=== PATIENT | male | born 1965 | race Caucasian/White ===

== ENCOUNTER 2025-09-10 19:12 | Emergency (ER) | payer OTHER ==
[~2025-09-10] VITALS: Ht 170.2 cm; Wt 74.0 kg
[2025-09-10] MEDS ORDERED: HYDR-3490 PO (19:24)
[2025-09-10] MEDS ORDERED: METO1TAB33 PO (19:24)
[2025-09-10] MEDS ORDERED: DULO1CAP6 PO (19:24)
[2025-09-10] MEDS ORDERED: SIMV40TA20 PO (19:24)
[2025-09-10] MEDS ORDERED: OLME40TA PO (19:24)
[2025-09-10 19:50] LABS: VENOUS BASE EXCESS 1.5 (-2.0-2.0); VENOUS HCO3 28.1 MMOL/L (23.0-27.0); VENOUS O2 SATURATION 64.6 % (60.0-80.0); VENOUS PARTIAL PRESSURE CO2 51.2 mmHg (38.0-50.0); VENOUS PARTIAL PRESSURE O2 34.6 mmHg (30.0-50.0); VENOUS PH 7.357 UNITS (7.330-7.430); VENOUS STANDARD HCO3 24.9 MMOL/L; VENOUS TOTAL CO2 29.7 MMOL/L (24.0-28.0)
[2025-09-10 19:56] LABS: BASO # 0.1 10^3/uL (0.0-0.2); BASO % 0.5 % (0.0-1.0); EOS # 1.0 10^3/uL (0.0-0.5); EOS % 5.0 % (0.0-3.0); LYMPH # 3.9 10^3/uL (1.5-5.0); LYMPH % 18.9 % (24.0-44.0); MONO # 1.7 10^3/uL (0.0-0.8); MONO % 8.1 % (2.0-8.0); NEUTROPHILS # 13.9 10^3/uL (1.5-8.5); NEUTROPHILS % 67.1 % (36.0-66.0); PLATELET COUNT, AUTOMATED 262 10^3/uL (150-450)
[2025-09-10 20:14] LABS: INR 0.94
[2025-09-10 20:19] LABS: CK-MB VALUE MASS 3.0 NG/ML (<3.6)
[2025-09-10 20:20] LABS: CPK CREATINE PHOSPHOKINASE 124 U/L (46-171); MB/CK RELATIVE INDEX 2.41 (< OR =4)
[2025-09-10 20:21] LABS: ALT/SGPT 37 U/L (7.0-40); AST/SGOT 28 U/L (<34); CALCIUM LEVEL 10.1 MG/DL (8.3-10.6); CARBON DIOXIDE LEVEL 28 MMOL/L (20-31); CHLORIDE LEVEL 99 MMOL/L (98-107); CREATININE FOR GFR 0.86 MG/DL (0.70-1.30); GLOMERULAR FILTRATION RATE > 90.0 (>49); POTASSIUM SERUM 3.8 MMOL/L (3.5-5.1); SODIUM LEVEL 137 MMOL/L (136-145)
[2025-09-10] MEDS: IPRATROPIUM 0.5 MG/ALBUTEROL 2.5 MG INH SOL UD 3 ML NEB PRN (22:14)
[2025-09-10] MEDS ORDERED: VENTAER INH (23:43)
[2025-09-10] MEDS ORDERED: PRED10TA2 PO (23:43)
[2025-09-11 00:30] VITALS: BP 126/73; TEMP 98.6; O2SAT 94
== END 2025-09-11 00:35 | disposition home or self-care (01) ==
LOC: M ED 19:12
DX: J45.909 Unspecified asthma, uncomplicated (principal); I10 Essential (primary) hypertension; F17.200 Nicotine dependence, unspecified, uncomplicated
CPT/HCPCS: 71045; 80048; 80076; 82550; 82553; 82803; 83605; 83880; 84484; 85025; 85610; 87040; 87486; 87581; 87633; 87798; 93005; 94640; 94760; 96374; 99285; J1100

== ENCOUNTER → 2025-10-20 | Outpatient (CLI) | payer OTHER ==
[~2025-10-20] MED LIST: DULO1CAP6 PO; HYDR-3490 PO; METO1TAB33 PO; OLME40TA PO; PRED10TA2 PO; SIMV40TA20 PO; VENTAER INH
== END ==
LOC: M WUC 09:45
PROVIDERS: ATTEND Registered Nurse
DX: R06.2 Wheezing (principal)